=== PATIENT | female | born 1955 | race Caucasian/White ===

== ENCOUNTER 2022-07-26 12:33 | Outpatient (CLI) | payer OTHER | END 2022-07-26 12:34 | disposition home or self-care (01) | LOC: CSHMRI 12:33 | PROVIDERS: ATTEND Internal Medicine | DX: M54.2 Cervicalgia (principal); R20.0 Anesthesia of skin; Z91.81 History of falling; M54.50 Low back pain, unspecified; M25.552 Pain in left hip; M47.812 Spondylosis without myelopathy or radiculopathy, cervical region; M47.816 Spondylosis without myelopathy or radiculopathy, lumbar region; Z98.890 Other specified postprocedural states; S76.311A Strain of muscle, fascia and tendon of the posterior muscle group at thigh level, right thigh, initial encounter | CPT/HCPCS: 72141; 72148 ==

== ENCOUNTER 2022-08-09 09:54 | Observation (INO) | payer OTHER ==
[2022-08-09 11:34] LABS: #Eosinphils 0.1 10x3/uL (0.0-0.5); #Monocytes 0.4 10x3/uL (0.0-1.1); #Neutrophils 3.2 10x3/uL (1.5-8.4); %Basophils 0.8 % (0.0-2.0); %Eosinophils 2.3 % (0.0-6.0); %Lymphocytes 28.7 % (18.0-47.0); %Monocytes 6.8 % (0.0-10.0); %Neutrophils 61.2 % (40.0-75.0); Hemoglobin 11.6 g/dL (12.0-15.5); Mean Corpuscular HGB CONC 35.7 g/dL (32.0-36.0); Mean Corpuscular Hemoglobin 30.9 pg (27.0-33.0); Mean Corpuscular Volume 86.7 fl (81.6-98.3); Mean Platelet Volume 8.4 fl (7.4-10.4); Platelet Count 226 10x3/uL (150-450); RBC Distribution Width 13.2 % (11.5-14.5); Red Blood Cell (RBC) Count 3.75 10x6/uL (3.90-5.03); White Blood Cell (WBC) Count 5.3 10x3/uL (3.5-10.5)
[2022-08-09 11:46] LABS: ALT (SGPT) 17 U/L (8-55); AST (SGOT) 17 U/L (5-34); Albumin 3.8 g/dL (3.4-4.8); Alkaline Phosphatase 108 U/L (40-110); Anion Gap 14 mmol/L (10-20); BUN (Urea Nitrogen) 13 mg/dL (9.8-20.1); Bilirubin, Total 0.4 mg/dL (0.2-1.2); Calc. Creatinine Clearance 0 mL/min (70-130); Calcium 8.8 mg/dL (7.8-10.44); Carbon Dioxide 22 mmol/L (23-31); Chloride 98 mmol/L (98-107); Estimated GFR 84; Globulin 2.4 g/dL (2.4-3.5); Glucose 99 mg/dL (80-115); Potassium 3.8 mmol/L (3.5-5.1); Protein, Total 6.2 g/dL (5.8-8.1); Sodium 130 mmol/L (136-145)
[2022-08-09 13:27] LABS: Bilirubin Neg (Negative); Blood, Urine Negative (Negative); Clarity Clear (Clear); Glucose, Urine (Dipstick) Normal (Negative); Ketone, Urine Negative (Negative); Leukocyte 25 (Negative); Nitrite Negative (Negative); Protein, Urine (Dipstick) 15 mg/dl (Neg-Trace); Urobilinogen Normal mg/dL (Less than 2)
[2022-08-09] MEDS ORDERED: Ketorolac Tromethamine 30 MG/ML VIAL ONE (13:28)
[2022-08-09] MEDS ORDERED: Diazepam 10 MG/2 ML SYRINGE ONE (13:28)
[2022-08-09 13:44] LABS: Bacteria/HPF None Seen HPF (None Seen); RBC/HPF None Seen HPF (0-3); Squamous Epithelial 0-3 HPF (0-3); WBC/HPF 0-3 HPF (0-3)
[2022-08-09 18:12] VITALS: BMI 28.7
[2022-08-09] MEDS ORDERED: Acetaminophen 325 MG TAB PO PRN (18:13)
[2022-08-09] MEDS ORDERED: hydrALAZINE 20 MG/ML VIAL SLOW IVP PRN (18:14)
[2022-08-09] MEDS ORDERED: Metoclopramide HCl 10 MG/2 ML VIAL IVP PRN (18:20)
[2022-08-09] MEDS ORDERED: Ventolin HFA Inhaler 60 PUFF INHALER INH PRN (18:20)
[2022-08-09] MEDS ORDERED: Zolpidem Tartrate 5 MG TAB PO PRN (19:13)
[2022-08-09 20:07] LABS: SARS-CoV-2 NAA Rapid Test Not Detected (NotDetected)
[2022-08-09] MEDS: Sertraline 100 MG TAB PO SCH (21:13)
[2022-08-09] MEDS ORDERED: Rivaroxaban 10 MG TAB PO SCH (23:45)
[2022-08-10 06:56] LABS: #Eosinphils 0.2 10x3/uL (0.0-0.5); #Monocytes 0.3 10x3/uL (0.0-1.1); %Basophils 0.7 % (0.0-2.0); %Lymphocytes 41.9 % (18.0-47.0); %Monocytes 7.5 % (0.0-10.0); %Neutrophils 45.7 % (40.0-75.0); Hemoglobin 10.5 g/dL (12.0-15.5); Mean Corpuscular HGB CONC 35.8 g/dL (32.0-36.0); Mean Corpuscular Hemoglobin 31.1 pg (27.0-33.0); Mean Corpuscular Volume 86.7 fl (81.6-98.3); Mean Platelet Volume 8.6 fl (7.4-10.4); Platelet Count 210 10x3/uL (150-450); RBC Distribution Width 13.1 % (11.5-14.5); Red Blood Cell (RBC) Count 3.38 10x6/uL (3.90-5.03); White Blood Cell (WBC) Count 4.3 10x3/uL (3.5-10.5)
[2022-08-10 07:08] LABS: Anion Gap 14 mmol/L (10-20); BUN (Urea Nitrogen) 11 mg/dL (9.8-20.1); Calc. Creatinine Clearance 113 mL/min (70-130); Calcium 8.9 mg/dL (7.8-10.44); Carbon Dioxide 22 mmol/L (23-31); Cardiac Risk 5.5 (Less than 4.5); Chloride 102 mmol/L (98-107); Cholesterol 210 mg/dl (< 200 Desired); Estimated GFR 94; Glucose 96 mg/dL (80-115); HDL Cholesterol 38 mg/dL (>60 Neg Risk); LDL Cholesterol, Calculated 135 mg/dL; Potassium 4.6 mmol/L (3.5-5.1); Sodium 133 mmol/L (136-145); Triglycerides 183 mg/dL (Less than 150)
[2022-08-10] MEDS ORDERED: Cyanocobalamin (Vitamin B-12) 1,000 MCG TAB PO SCH (09:00)
[2022-08-10] MEDS ORDERED: Rivaroxaban 10 MG TAB PO SCH ×2 (09:00→21:00)
[2022-08-10] MEDS ORDERED: Folic Acid 1 MG TAB PO SCH (09:00)
[2022-08-10 12:41] LABS: Hemoglobin A1c 5.4 % (4.0-6.0)
[2022-08-10] MEDS: Sertraline 100 MG TAB PO SCH (21:15)
[2022-08-10 22:38] VITALS: BP 144/90; TEMP 98.5
== END 2022-08-10 21:52 | disposition home or self-care (01) ==
LOC: CSHERS 09:54 → CSHTELE 16:55
PROVIDERS: ADMIT Family Medicine; ATTEND Family Medicine
DX: R42 Dizziness and giddiness (principal); G44.059 Short lasting unilateral neuralgiform headache with conjunctival injection and tearing (SUNCT), not intractable; E87.1 Hypo-osmolality and hyponatremia; D64.9 Anemia, unspecified; R53.1 Weakness; D68.9 Coagulation defect, unspecified; Z20.822 Contact with and (suspected) exposure to COVID-19; C50.911 Malignant neoplasm of unspecified site of right female breast; Z79.899 Other long term (current) drug therapy; F41.9 Anxiety disorder, unspecified; F32.A Depression, unspecified; F43.10 Post-traumatic stress disorder, unspecified; J44.9 Chronic obstructive pulmonary disease, unspecified; I10 Essential (primary) hypertension; E78.5 Hyperlipidemia, unspecified; I25.10 Atherosclerotic heart disease of native coronary artery without angina pectoris; Z86.718 Personal history of other venous thrombosis and embolism; Z86.73 Personal history of transient ischemic attack (TIA), and cerebral infarction without residual deficits
CPT/HCPCS: 36415; 70450; 70551; 71045; 80048; 80053; 80061; 81003; 81015; 83036; 83605; 84443; 84484; 85025; 87040; 93005; 93306; 93880; 94760; 96361; 96374; 96375; G0378; J1885; J3360; U0002

== ENCOUNTER 2022-09-12 17:51 | Emergency (ER) | payer OTHER ==
[~2022-09-12 17:51] MED LIST: Iopamidol 300 61% 100 ML VIAL FS ONE
[2022-09-12] MEDS ORDERED: Ondansetron PF 4 MG/2 ML Vial ONE (18:32)
[2022-09-12] MEDS ORDERED: Dicyclomine 20 MG/2 ML VIAL ONE (18:32)
[2022-09-12 19:05] LABS: #Monocytes 0.6 10x3/uL (0.0-1.1); #Neutrophils 8.1 10x3/uL (1.5-8.4); %Basophils 0.2 % (0.0-2.0); %Eosinophils 0.2 % (0.0-6.0); %Lymphocytes 10.9 % (18.0-47.0); %Monocytes 5.8 % (0.0-10.0); %Neutrophils 82.7 % (40.0-75.0); Hemoglobin 13.1 g/dL (12.0-15.5); Mean Corpuscular HGB CONC 36.5 g/dL (32.0-36.0); Mean Corpuscular Hemoglobin 31.2 pg (27.0-33.0); Mean Corpuscular Volume 85.5 fl (81.6-98.3); Mean Platelet Volume 8.9 fl (7.4-10.4); Platelet Count 325 10x3/uL (150-450); RBC Distribution Width 13.3 % (11.5-14.5); White Blood Cell (WBC) Count 9.8 10x3/uL (3.5-10.5)
[2022-09-12 19:12] LABS: ALT (SGPT) 9 U/L (8-55); AST (SGOT) 16 U/L (5-34); Albumin 4.5 g/dL (3.4-4.8); Alkaline Phosphatase 138 U/L (40-110); Anion Gap 17 mmol/L (10-20); BUN (Urea Nitrogen) 14 mg/dL (9.8-20.1); Bilirubin, Total 0.6 mg/dL (0.2-1.2); Calc. Creatinine Clearance 0 mL/min (70-130); Calcium 9.8 mg/dL (7.8-10.44); Carbon Dioxide 22 mmol/L (23-31); Chloride 96 mmol/L (98-107); Estimated GFR 88; Globulin 3.2 g/dL (2.4-3.5); Glucose 134 mg/dL (80-115); Magnesium 1.4 mg/dL (1.6-2.6); Potassium 3.5 mmol/L (3.5-5.1); Protein, Total 7.7 g/dL (5.8-8.1); Sodium 131 mmol/L (136-145)
[2022-09-12] MEDS ORDERED: Promethazine HCl 25 MG/ML VIAL ONE (19:59)
[2022-09-12 20:01] LABS: Bilirubin Neg (Negative); Blood, Urine 25 (Negative); Clarity Clear (Clear); Glucose, Urine (Dipstick) 100 mg/dL (Negative); Ketone, Urine 50 mg/dL (Negative); Leukocyte Negative (Negative); Nitrite Negative (Negative); Protein, Urine (Dipstick) 100 mg/dl (Neg-Trace); Urobilinogen Normal mg/dL (Less than 2)
[2022-09-12 20:09] LABS: Bacteria/HPF 2+ HPF (None Seen); Mucous/LPF 1+ LPF (<2+); RBC/HPF 0-3 HPF (0-3); Squamous Epithelial 0-3 HPF (0-3); WBC/HPF 0-3 HPF (0-3)
== END 2022-09-12 23:00 | disposition home or self-care (01) ==
LOC: CSHERS 17:51
DX: K51.50 Left sided colitis without complications (principal); N39.0 Urinary tract infection, site not specified; I25.10 Atherosclerotic heart disease of native coronary artery without angina pectoris
CPT/HCPCS: 74177; 76705; 80053; 81003; 81015; 83735; 85025; 87086; 93005; 96361; 96365; 96372; 96375; J2405; J2550; Q9967

== ENCOUNTER 2022-11-28 10:32 | Outpatient (CLI) | payer OTHER | END 2022-11-28 10:33 | disposition home or self-care (01) | LOC: CSHCT 10:32 | PROVIDERS: ATTEND Neurological Surgery | DX: M54.12 Radiculopathy, cervical region (principal); Z98.890 Other specified postprocedural states; M47.812 Spondylosis without myelopathy or radiculopathy, cervical region | CPT/HCPCS: 72125 ==

== ENCOUNTER 2023-04-23 11:34 | Outpatient (CLI) | payer OTHER | END 2023-04-23 11:35 | disposition home or self-care (01) | LOC: CSHRAD 11:34 | PROVIDERS: ATTEND Neurological Surgery | DX: M54.12 Radiculopathy, cervical region (principal); Z98.890 Other specified postprocedural states | CPT/HCPCS: 72040 ==

== ENCOUNTER 2023-05-07 09:49 | Outpatient (CLI) | payer OTHER | END 2023-05-07 09:50 | disposition home or self-care (01) | LOC: CSHRAD 09:49 | PROVIDERS: ATTEND Neurological Surgery | DX: M47.22 Other spondylosis with radiculopathy, cervical region (principal); Z98.890 Other specified postprocedural states | CPT/HCPCS: 72040 ==

== ENCOUNTER 2023-09-24 10:26 | Outpatient (CLI) | payer OTHER | END 2023-09-24 10:27 | disposition home or self-care (01) | LOC: CSHRAD 10:26 | PROVIDERS: ATTEND Neurological Surgery | DX: M54.2 Cervicalgia (principal); Z98.890 Other specified postprocedural states | CPT/HCPCS: 72040 ==

== ENCOUNTER 2023-10-17 16:09 | Emergency (ER) | payer OTHER ==
[2023-10-17 17:47] LABS: #Eosinphils 0.1 10x3/uL (0.0-0.5); #Monocytes 0.5 10x3/uL (0.0-1.1); #Neutrophils 4.6 10x3/uL (1.5-8.4); %Basophils 0.4 % (0.0-2.0); %Eosinophils 1.3 % (0.0-6.0); %Lymphocytes 22.2 % (18.0-47.0); %Monocytes 6.7 % (0.0-10.0); %Neutrophils 69.1 % (40.0-75.0); Hematocrit 34.1 % (34.9-44.5); Hemoglobin 11.7 g/dL (12.0-15.5); Mean Corpuscular HGB CONC 34.3 g/dL (32.0-36.0); Mean Corpuscular Hemoglobin 29.5 pg (27.0-33.0); Mean Corpuscular Volume 86.1 fl (81.6-98.3); Mean Platelet Volume 9.3 fl (7.4-10.4); Platelet Count 221 10x3/uL (150-450); RBC Distribution Width 12.4 % (11.5-14.5); Red Blood Cell (RBC) Count 3.96 10x6/uL (3.90-5.03); White Blood Cell (WBC) Count 6.7 10x3/uL (3.5-10.5)
[2023-10-17 17:49] LABS: ALT (SGPT) 9 U/L (8-55); AST (SGOT) 16 U/L (5-34); Alkaline Phosphatase 124 U/L (40-110); Anion Gap 12 mmol/L (10-20); BUN (Urea Nitrogen) 10 mg/dL (9.8-20.1); Bilirubin, Total 0.3 mg/dL (0.2-1.2); Calc. Creatinine Clearance 0 mL/min (70-130); Calcium 8.8 mg/dL (7.8-10.44); Carbon Dioxide 24 mmol/L (23-31); Chloride 104 mmol/L (98-107); Estimated GFR 57; Globulin 2.2 g/dL (2.4-3.5); Glucose 109 mg/dL (80-115); Potassium 3.9 mmol/L (3.5-5.1); Protein, Total 6.2 g/dL (5.8-8.1); Sodium 136 mmol/L (136-145)
[2023-10-17 17:53] LABS: Troponin I Less than 0.010 ng/mL (< 0.028)
== END 2023-10-17 19:08 | disposition home or self-care (01) ==
LOC: CSHERS 16:09
DX: R00.2 Palpitations (principal)
CPT/HCPCS: 36415; 80053; 84484; 85025; 93005

== ENCOUNTER 2024-02-10 19:01 | Inpatient (IN) | payer MEDICARE, OTHER ==
[2024-02-10] MEDS ORDERED: HYDROcodone/Acetaminophen 5/325 mg Tablet ONE ×2 (19:57→22:01)
[2024-02-10] MEDS ORDERED: Orphenadrine Citrate 60 MG/2 ML VIAL ONE (19:57)
[2024-02-11] MEDS ORDERED: Morphine 4 MG/ML VIAL ONE (00:38)
[2024-02-11] MEDS ORDERED: Senokot S 8.6-50 MG TAB PO PRN (01:11)
[2024-02-11] MEDS ORDERED: Diclofenac 1% 50 GM TOPICAL GEL TP PRN (01:14)
[2024-02-11] MEDS ORDERED: LIDOCAINE TOP PRN (01:14)
[2024-02-11] MEDS ORDERED: Ipratropium/Albuterol 3 ML NEB NEB PRN (01:14)
[2024-02-11] MEDS ORDERED: Ventolin HFA Inhaler 60 PUFF INHALER INH PRN (01:14)
[2024-02-11] MEDS ORDERED: Loratadine 10 MG TAB PO PRN (01:21)
[2024-02-11 01:32] LABS: #Basophils 0.03 10x3/uL (0.0-0.2); #Eosinphils 0.12 10x3/uL (0.0-0.5); #Monocytes 0.39 10x3/uL (0.0-1.1); %Basophils 0.5 % (0.0-2.0); %Lymphocytes 22.2 % (18.0-47.0); %Monocytes 6.5 % (0.0-10.0); %Neutrophils 68.5 % (40.0-75.0); Hematocrit 38.1 % (34.9-44.5); Hemoglobin 13.1 g/dL (12.0-15.5); Mean Corpuscular HGB CONC 34.4 g/dL (32.0-36.0); Mean Corpuscular Hemoglobin 29.8 pg (27.0-33.0); Mean Corpuscular Volume 86.8 fL (81.6-98.3); Mean Platelet Volume 8.7 fL (7.4-10.4); Platelet Count 220 10x3/uL (150-450); RBC Distribution Width 13.6 % (11.5-14.5); Red Blood Cell (RBC) Count 4.39 10x6/uL (3.90-5.03)
[2024-02-11 01:49] LABS: Anion Gap 17 mmol/L (10-20); BUN (Urea Nitrogen) 10 mg/dL (9.8-20.1); Calc. Creatinine Clearance 0 mL/min (70-130); Calcium 10.2 mg/dL (7.8-10.44); Carbon Dioxide 24 mmol/L (23-31); Chloride 95 mmol/L (98-107); Estimated GFR 82; Glucose 107 mg/dL (80-115); Magnesium 1.5 mg/dL (1.6-2.6); Potassium 3.5 mmol/L (3.5-5.1); Sodium 132 mmol/L (136-145)
[2024-02-11] MEDS ORDERED: Potassium Chloride 20 MEQ TAB ONE (05:35)
[2024-02-11] MEDS ORDERED: Acetaminophen 325 MG TAB ONE (05:35)
[2024-02-11] MEDS ORDERED: Magnesium 2 GM/50 ML BAG (IN WATER) ONE (05:36)
[2024-02-11] MEDS: Acetaminophen 325 MG TAB PO SCH (05:57)
[2024-02-11] MEDS: Magnesium 2 GM/50 ML(in water) 2 GM in Premix 1 BAG IVPB SCH (05:58)
[2024-02-11] MEDS: Potassium Chloride 20 MEQ TAB PO SCH (05:59)
[2024-02-11] MEDS ORDERED: Folic Acid 1 MG TAB ONE (07:32)
[2024-02-11] MEDS ORDERED: Calcium Carbonate 500 MG ChewTAB ONE (07:32)
[2024-02-11] MEDS ORDERED: Cholecalciferol 1,000 UNITS (25 MCG) TAB ONE (08:49)
[2024-02-11] MEDS ORDERED: Ascorbic Acid 500 mg Chewable Tablet ONE (08:50)
[2024-02-11] MEDS ORDERED: Gabapentin 300 MG CAP ONE (08:50)
[2024-02-11] MEDS ORDERED: Cyclobenzaprine 10 MG TAB ONE (08:55)
[2024-02-11] MEDS: Cyanocobalamin (Vitamin B-12) 1,000 MCG TAB PO SCH (09:19)
[2024-02-11] MEDS: Cholecalciferol 1,000 UNITS (25 MCG) TAB PO SCH (09:19)
[2024-02-11] MEDS: Ascorbic Acid 500 mg Chewable Tablet PO SCH (09:19)
[2024-02-11] MEDS: Calcium Carbonate 500 MG TAB PO SCH (09:19)
[2024-02-11] MEDS: Gabapentin 300 MG CAP PO SCH (09:20)
[2024-02-11] MEDS: Fluticasone Propionate Nasal Spray 16 gm Bottle NASAL SCH (09:20)
[2024-02-11] MEDS: Folic Acid 1 MG TAB PO SCH (09:20)
[2024-02-11] MEDS: Cyclobenzaprine 10 MG TAB PO PRN (09:21)
[2024-02-11] MEDS: Magnesium Oxide 400 MG TAB PO SCH (09:21)
[2024-02-11] MEDS: Trospium 20 MG TAB PO SCH (09:21)
[2024-02-11] MEDS ORDERED: Acetaminophen 500 MG TAB ONE (11:27)
[2024-02-11] MEDS: Acetaminophen 500 MG TAB PO SCH (11:35)
[2024-02-11] MEDS ORDERED: Morphine 2 MG/ML VIAL ONE (11:53)
[2024-02-11] MEDS: Morphine 2 MG/ML VIAL SLOW IVP PRN (11:59)
[2024-02-11 14:38] VITALS: BMI 32.0
[2024-02-11] MEDS: Ezetimibe 10 MG TAB PO SCH (20:43)
[2024-02-11] MEDS: Rivaroxaban 10 MG TAB PO SCH (20:44)
[2024-02-11] MEDS: Pantoprazole DR 40 MG TAB PO SCH (20:44)
[2024-02-11] MEDS: Rosuvastatin 20 MG TAB PO SCH (20:44)
[2024-02-11] MEDS: Sertraline 100 MG TAB PO SCH (20:44)
[2024-02-12 04:04] LABS: #Basophils 0.04 10x3/uL (0.0-0.2); #Eosinphils 0.23 10x3/uL (0.0-0.5); #Monocytes 0.72 10x3/uL (0.0-1.1); #Neutrophils 3.35 10x3/uL (1.5-8.4); %Basophils 0.7 % (0.0-2.0); %Eosinophils 3.9 % (0.0-6.0); %Lymphocytes 25.9 % (18.0-47.0); %Monocytes 12.2 % (0.0-10.0); Hematocrit 39.1 % (34.9-44.5); Hemoglobin 13.3 g/dL (12.0-15.5); Mean Corpuscular Hemoglobin 30.2 pg (27.0-33.0); Mean Corpuscular Volume 88.7 fL (81.6-98.3); Mean Platelet Volume 9.1 fL (7.4-10.4); Platelet Count 228 10x3/uL (150-450); RBC Distribution Width 13.9 % (11.5-14.5); Red Blood Cell (RBC) Count 4.41 10x6/uL (3.90-5.03); White Blood Cell (WBC) Count 5.9 10x3/uL (3.5-10.5)
[2024-02-12 04:39] LABS: Anion Gap 16 mmol/L (10-20); BUN (Urea Nitrogen) 13 mg/dL (9.8-20.1); Calc. Creatinine Clearance 109 mL/min (70-130); Calcium 10.2 mg/dL (7.8-10.44); Carbon Dioxide 26 mmol/L (23-31); Chloride 97 mmol/L (98-107); Estimated GFR 81; Glucose 118 mg/dL (80-115); Magnesium 2.1 mg/dL (1.6-2.6); Potassium 5.5 mmol/L (3.5-5.1); Sodium 133 mmol/L (136-145)
[2024-02-12 06:30] LABS: Bilirubin Neg (Negative); Blood, Urine 10 (Negative); Clarity Slightly Cloudy (Clear); Glucose, Urine (Dipstick) Normal (Negative); Ketone, Urine 5 mg/dL (Negative); Leukocyte 100 (Negative); Nitrite Negative (Negative); Protein, Urine (Dipstick) 30 mg/dl (Neg-Trace); Specific Gravity, Urine 1.025 (1.005-1.030); Urobilinogen Normal mg/dL (Less than 2)
[2024-02-12 06:39] LABS: Bacteria/HPF 2+ HPF (None Seen); CAUTI Indications for Culture Dysuria,urgency,freq
[2024-02-12 06:40] LABS: Urine Culture Reflex Yes Yes
[2024-02-12] MEDS ORDERED: Ondansetron PF 4 MG/2 ML Vial IVP PRN (09:04)
[2024-02-12] MEDS ORDERED: traMADol HCl 50 MG TAB PO PRN (16:03)
[2024-02-12] MEDS: cefTRIAXone\\ROCEPHIN 1 GM in Sodium Chloride 0.9% 100 ML IVPB SCH (16:37)
[2024-02-12] MEDS: traMADol HCl 50 MG TAB PO SCH (16:38)
[2024-02-12] MEDS: HYDROcodone/Acetaminophen 5/325 mg Tablet PO PRN (17:26)
[2024-02-12] MEDS: Melatonin 3 MG TAB PO PRN (21:29)
[2024-02-13 03:52] LABS: Anion Gap 17 mmol/L (10-20); BUN (Urea Nitrogen) 14 mg/dL (9.8-20.1); Calc. Creatinine Clearance 115 mL/min (70-130); Carbon Dioxide 22 mmol/L (23-31); Chloride 97 mmol/L (98-107); Estimated GFR 86; Glucose 113 mg/dL (80-115); Potassium 5.2 mmol/L (3.5-5.1); Sodium 131 mmol/L (136-145)
[2024-02-13] MEDS: Zolpidem Tartrate 5 MG TAB PO PRN (21:57)
[2024-02-14 03:46] LABS: Anion Gap 14 mmol/L (10-20); BUN (Urea Nitrogen) 14 mg/dL (9.8-20.1); Calc. Creatinine Clearance 126 mL/min (70-130); Calcium 9.4 mg/dL (7.8-10.44); Carbon Dioxide 24 mmol/L (23-31); Chloride 96 mmol/L (98-107); Estimated GFR 95; Glucose 115 mg/dL (80-115); Potassium 4.4 mmol/L (3.5-5.1); Sodium 130 mmol/L (136-145)
[2024-02-14 08:06] VITALS: TEMP 97.7
[2024-02-14 10:58] VITALS: BP 101/62
== END 2024-02-14 14:47 | DRG 552 ==
LOC: CSHERS 19:01 → CSHERHOLD 02-11 00:24 → CSHTELE 02-11 13:03 → OBSVTOIN 02-12 16:30
PROVIDERS: ADMIT Family Medicine; ATTEND Family Medicine
PROC: 4A0 Measurement and Monitoring, Physiological Systems, Measurement (ICD-10-PCS; principal; 2024-02-12)
DX: M51.36 Other intervertebral disc degeneration, lumbar region (principal); E87.1 Hypo-osmolality and hyponatremia; N39.0 Urinary tract infection, site not specified; I74.9 Embolism and thrombosis of unspecified artery; E87.5 Hyperkalemia; I25.10 Atherosclerotic heart disease of native coronary artery without angina pectoris; Z88.8 Allergy status to other drugs, medicaments and biological substances; Z88.5 Allergy status to narcotic agent; Z79.899 Other long term (current) drug therapy; Z98.890 Other specified postprocedural states; J45.909 Unspecified asthma, uncomplicated; F32.A Depression, unspecified
CPT/HCPCS: 36415; 51798; 72072; 80048; 81001; 83735; 85025; 87077; 87086; 96372; 96374; 96375; 96376; G0378; J0696; J2270; J2272; J2360; J3475; J3490